=== PATIENT | male | born 1990 | race Caucasian/White ===

== ENCOUNTER 2018-11-15 19:00 | Emergency (ER) | payer BC ==
--- NOTE | 2018-11-15 20:38 | EDM.PDOC ---
ED HPI GENERAL MEDICAL PROBLEM - General Chief Complaint: Abdominal Pain Stated Complaint: RIB PAIN Time Seen by Provider: 11/15/18 20:38 - History of Present Illness INITIAL COMMENTS - FREE TEXT/NARRATIVE: 28-year-old male presents emergency room with chest pain. a week ago patient fell on a ledge catching his right lower ribs. Since that he 's had very significant pain. It hurts when he takes a deep breath tries to turn her move. He's used some Aleve this helps a little bit. He's not had any breathing difficulties or shortness of breath no fevers or chills. No abdominal pain no nausea vomiting constipation or diarrhea Treatments TEACHERS' AIDE: Reports: Other (see below) Other Treatments TEACHERS' AIDE: motrin today - Related Data Allergies Allergy/AdvReac Type Severity Reaction Status Date / Time Penicillins Allergy Rash Verified 11/15/18 19:37 Home Meds: Home Meds Acetaminophen/HYDROcodone [[place] 325-5 MG] 1 - 2 tab PO Q6H PRN #20 tablet 11/15 [Rx] Past Medical History Musculoskeletal History: Reports: Other (See Below) Other Musculoskeletal History: right 5th finger fracture - Past Surgical History Male Surgical History: Reports: Other (See Below) Other Male Surgeries/Procedures: hydrocele surgery Social & Family History - Tobacco Use Smoking Status *Q: Current Every Day Smoker Years of Tobacco use: 15 Packs/Tins Daily: 1 - Caffeine Use Caffeine Use: Reports: Coffee, Energy Drinks, Soda - Recreational Drug Use Recreational Drug Use: No ED ROS GENERAL - Review of Systems Review Of Systems: See Below Constitutional: Reports: No Symptoms HEENT: Reports: No Symptoms, Vertigo Respiratory: Reports: Pleuritic Chest Pain Cardiovascular: Reports: No Symptoms GI/Abdominal: Reports: No Symptoms : Reports: No Symptoms Neurological: Reports: No Symptoms ED EXAM, GI/ABD - Physical Exam Exam: See Below Exam Limited By: No Limitations General Appearance: Alert, No Apparent Distress Ears: Hearing Grossly Normal Head: Atraumatic, Normocephalic Neck: Normal Inspection, Supple, Non-Tender, Full Range of Motion. No: Lymphadenopathy (L), Lymphadenopathy (R) Respiratory/Chest: No Respiratory Distress, Lungs Clear, Normal Breath Sounds, No Accessory Muscle Use, Other (He has significant right lateral lower rib pain with palpation no other chest wall pain noted) Cardiovascular: Regular Rate, Rhythm, No Edema, No Murmur GI/Abdominal Exam: Normal Bowel Sounds, Soft, Non-Tender, No Distention, Pelvis Stable. No: Guarding, Rigid, Rebound, Tender Back Exam: Normal Inspection. No: CVA Tenderness (L), CVA Tenderness (R) Extremities: Normal Inspection, No Pedal Edema Course - Vital Signs Last Recorded V/S: Last Vital Signs Temp 37.4 C 11/15/18 19:41 Pulse 78 11/15/18 19:41 Resp 20 11/15/18 19:41 BP 145/83 H 11/15/18 19:41 Pulse Ox 96 11/15/18 19:41 - Orders/Labs/Meds Orders: Active Orders 24 hr Category Date Time Status Ribs 2V w Chest Rt [CR] Stat Exams 11/15/18 20:03 Taken - Re-Assessments/Exams Free Text/Narrative Re-Assessment/Exam: 11/15/18 21:25 Chest x-rays and right ribs are negative for acute fracture dislocation no pneumothorax no pulmonary contusion normal AP chest no obvious rib fractures. Departure - Departure Time of Disposition: 21:16 Disposition: Home, Self-Care 01 Clinical Impression: Contusion, chest wall, Acute chest wall pain - Discharge Information Prescriptions: Acetaminophen/HYDROcodone [[place] 325-5 MG] 1 - 2 tab PO Q6H PRN #20 tablet PRN Reason: Pain Referrals: PCP,None [Primary Care Provider] - Forms: ED Department Discharge Additional Instructions: Return to emergency room with any questions problems worsening symptoms. Follow-up at the Hospital clinic and establish with a regular Dr. discuss your chest wall injury discussed your high blood pressure and your hyperlipidemia. Use Aleve 220 mg 1 twice daily with food. For the more severe pain use the hydrocodone as directed. If using the hydrocodone on a regular basis take a good stool softener with it as it can cause constipation - My Orders Last 24 Hours: My Active Orders 11/15/18 20:03 Ribs 2V w Chest Rt [CR] Stat - Assessment/Plan Last 24 Hours: My Active Orders 11/15/18 20:03 Ribs 2V w Chest Rt [CR] Stat
--- NOTE | 2018-11-16 07:05 | CR ---
Chest and right ribs: Frontal view of the chest was obtained as well as three views of the right ribs. Comparison: No previous study. Heart size and mediastinum are normal. Small nodule is noted within the left lung base measuring approximately 5 mm. Lungs otherwise are clear. No discrete fracture or other right-sided rib abnormality is appreciated. Impression: 1. Small 5 mm nodule within the left lung base. Recommend repeat chest x-ray in 9 months to evaluate for stability. Follow-up exam would occur in August,. 2. Nothing acute is otherwise seen on frontal chest x-ray. 2. No discrete rib abnormality is appreciated. Diagnostic code #9
== END 2018-11-15 21:25 | disposition home or self-care (01) ==
LOC: JD.ED 19:00
DX: S20.211A Contusion of right front wall of thorax, initial encounter (principal); R91.8 Other nonspecific abnormal finding of lung field; F17.210 Nicotine dependence, cigarettes, uncomplicated; W19.XXXA Unspecified fall, initial encounter; Z88.0 Allergy status to penicillin
CPT/HCPCS: 71101-26-RT; 71101-RT; 99283